=== PATIENT | female | born 1955 | race Two or more races ===

== ENCOUNTER 2021-05-11 09:19 | Emergency (ER) | payer OTHER ==
[2021-05-11 09:24] VITALS: TEMP 98.4; BMI 26.9
[2021-05-11] MEDS ORDERED: KETOROLAC TROMETHAMINE 30 MG/1 ML VIAL IVPUSH ONE (09:51)
[2021-05-11] MEDS ORDERED: ONDANSETRON 4 MG/2 ML VIAL IVPUSH ONE (09:51)
[2021-05-11] MEDS ORDERED: SODIUM CHLORIDE 0.9% 500 ML INFUS.BAG IV ONE (09:51)
[2021-05-11] MEDS ORDERED: KETOROLAC TROMETHAMINE 30 MG/1 ML VIAL ONE (10:04)
[2021-05-11] MEDS ORDERED: ONDANSETRON 4 MG/2 ML VIAL ONE (10:04)
[2021-05-11 10:31] LABS: BASO % 0.6 % (0-2.0); EOS % 0.2 % (0-4.5); HEMATOCRIT 40.7 % (32.4-45.2); HEMOGLOBIN 13.9 GM/dL (10.7-15.3); MCH 30.5 pg (25.7-33.7); MCHC 34.2 g/dl (32.0-36.0); MEAN CELL VOLUME 89.2 fl (80-96); MEAN PLT VOLUME 7.8 fl (7.5-11.1); MONO % 3.5 % (3.8-10.2); NEUT % 84.7 % (42.8-82.8); PLATELET COUNT 341 10^3/uL (134-434); RBC 4.57 M/mm3 (3.60-5.2); WHITE BLOOD COUNT 10.3 K/mm3 (4.0-10.0)
[2021-05-11 10:33] LABS: EPI CELLS 2 /uL (0-25.1); HYALINE CASTS 0 /uL (0-3.1); PH,URINE 5.5 (5.0-8.0); URINE APPEARANCE CLEAR; URINE BACTERIA 48 /uL (0-1359); URINE BILIRUBIN NEGATIVE (NEGATIVE); URINE COLOR YELLOW; URINE GLUCOSE (UA) NEGATIVE (NEGATIVE); URINE KETONE NEGATIVE (NEGATIVE); URINE LEUK ESTERASE NEGATIVE (NEGATIVE); URINE NITRITE NEGATIVE (NEGATIVE); URINE PROTEIN NEGATIVE (NEGATIVE); URINE RBC 18 /uL (0-23.9); URINE UROBILINOGEN 0.2 mg/dL (0.2-1.0); URINE WBC 6 /uL (0-25.8)
[2021-05-11 11:00] LABS: CALCIUM 8.7 mg/dL (8.5-10.1)
[2021-05-11 11:01] LABS: ALBUMIN 4.1 g/dl (3.4-5.0); BLOOD UREA NITROGEN 10.4 mg/dL (7-18)
[2021-05-11 11:04] LABS: CREATININE 0.7 mg/dL (0.55-1.3)
[2021-05-11 11:06] LABS: BILIRUBIN,TOTAL 0.5 mg/dL (0.2-1); TOT PROT 7.5 g/dl (6.4-8.2)
[2021-05-11 12:48] VITALS: BP 112/58; PULSE 92
== END 2021-05-11 12:50 | disposition home or self-care (01) ==
LOC: JER 09:19
PROC: 3E0333Z Introduction of Anti-inflammatory into Peripheral Vein, Percutaneous Approach (ICD-10-PCS; principal; 2021-05-11)
PROC: 3E033GC Introduction of Other Therapeutic Substance into Peripheral Vein, Percutaneous Approach (ICD-10-PCS; 2021-05-11)
DX: R10.9 Unspecified abdominal pain (principal)
CPT/HCPCS: 36415; 74176-TC; 80053; 81003; 85025; 87086; 99284-25

== ENCOUNTER 2021-05-17 14:13 | Emergency (ER) | payer OTHER ==
[2021-05-17 14:37] VITALS: BMI 57.0
[2021-05-17] MEDS ORDERED: FAMOTIDINE 20 MG/50 ML IVPB 20 MG/50 ML MG IVPB ONE ×2 (16:03→16:16)
[2021-05-17] MEDS ORDERED: ACETAMINOPHEN 1000 MG/100 ML VIAL (NON FORMULARY) IVPB ONE (16:04)
[2021-05-17] MEDS ORDERED: ACETAMINOPHEN INJECTION 100 ML IVPB ONE (16:16)
[2021-05-17 17:06] VITALS: TEMP 99.7
[2021-05-17 17:10] LABS: BASO % 0.4 % (0-2.0); EOS % 0.5 % (0-4.5); HEMATOCRIT 41.5 % (32.4-45.2); HEMOGLOBIN 14.3 GM/dL (10.7-15.3); LYMPH % 9.9 % (8-40); MCHC 34.4 g/dl (32.0-36.0); MEAN CELL VOLUME 90.3 fl (80-96); MEAN PLT VOLUME 8.2 fl (7.5-11.1); MONO % 9.1 % (3.8-10.2); NEUT % 80.1 % (42.8-82.8); PLATELET COUNT 262 10^3/uL (134-434); RDW 12.8 % (11.6-15.6); WHITE BLOOD COUNT 5.6 K/mm3 (4.0-10.0)
[2021-05-17 17:30] LABS: CHLORIDE 94 mmol/L (98-107); SODIUM 130 mmol/L (136-145)
[2021-05-17 17:36] LABS: ALBUMIN 4.1 g/dl (3.4-5.0); ANION GAP 9 MMOL/L (8-16); BLOOD UREA NITROGEN 9.7 mg/dL (7-18); CALCIUM 8.4 mg/dL (8.5-10.1); CO2 26 mmol/L (21-32); LIPASE 247 U/L (73-393)
[2021-05-17 17:37] LABS: GLUCOSE,RANDOM 99 mg/dL (74-106)
[2021-05-17 17:39] LABS: SGOT/AST 18 U/L (15-37); SGPT/ALT 20 U/L (13-61)
[2021-05-17 17:40] LABS: BILIRUBIN,TOTAL 0.4 mg/dL (0.2-1); CREATININE 0.9 mg/dL (0.55-1.3)
[2021-05-17 17:41] LABS: ALK PHOS 64 U/L (45-117); TOT PROT 7.8 g/dl (6.4-8.2)
[2021-05-17] MEDS ORDERED: ONDANSETRON 4 MG/2 ML VIAL ONE (18:19)
[2021-05-17] MEDS ORDERED: ONDANSETRON 4 MG/2 ML VIAL IVPUSH ONE (18:20)
[2021-05-17 18:59] VITALS: BP 116/62; PULSE 95
== END 2021-05-17 18:59 | disposition home or self-care (01) ==
LOC: JER 14:13
PROC: 3E0333Z Introduction of Anti-inflammatory into Peripheral Vein, Percutaneous Approach (ICD-10-PCS; principal; 2021-05-17)
PROC: 3E033GC Introduction of Other Therapeutic Substance into Peripheral Vein, Percutaneous Approach (ICD-10-PCS; 2021-05-17)
PROC: 3E033GC Introduction of Other Therapeutic Substance into Peripheral Vein, Percutaneous Approach (ICD-10-PCS; 2021-05-17)
DX: E86.0 Dehydration (principal)
CPT/HCPCS: 36415; 80053; 82550; 83690; 84484; 85025; 93005; 93010; 96374; 96375; 99284-25; J0131

== ENCOUNTER 2022-11-08 04:37 | Day surgery (SDC) | payer OTHER ==
[2022-11-06 10:20] VITALS: BMI 26.0
[2022-11-08 10:21] VITALS: TEMP 99
[2022-11-08 10:48] VITALS: PULSE 80
[2022-11-08 11:01] VITALS: BP 105/62; RESP 20
== END 2022-11-08 11:15 | disposition home or self-care (01) ==
LOC: JASU-ENDO 04:37
PROVIDERS: ATTEND Internal Medicine Gastroenterology
PROC: 0DBP8ZX Excision of Rectum, Via Natural or Artificial Opening Endoscopic, Diagnostic (ICD-10-PCS; principal; 2022-11-08 10:00)
DX: Z12.11 Encounter for screening for malignant neoplasm of colon (principal); K62.1 Rectal polyp; K57.30 Diverticulosis of large intestine without perforation or abscess without bleeding; Z86.010 Personal history of colon polyps
CPT/HCPCS: 88305-TC